=== PATIENT | female | born 1995 | race Caucasian/White ===

== ENCOUNTER 2023-07-12 12:10 | Emergency (ER) | payer OTHER, SELFPAY ==
--- NOTE | ~2023-07-12 | US_ITS ---
EXAMINATION: US OB <= 14 weeks fetus DATE: 07/12/2023 14:26 INDICATION: Vaginal bleeding TECHNIQUE: Real-time transabdominal and transvaginal obstetric ultrasound. FINDINGS: . No prior studies for comparison. The uterus measures 8.7 x 5.5 x 6.5 cm. There is an intrauterine gestational sac, with pole rebeca ntified. The crown rump length measures 0.5 cm, which correlates with a estimated gestational age of 6 weeks 1 day. heart tones are identified measuring 123 BPM. There is a subchorionic hemorrh age measuring 9 x 9 x 1.5 cm. Right ovary contains a 1.8 cm cyst. Normal Doppler signal in both ovari es. IMPRESSION: 1. SL IUP with an EGA of 6 weeks, 1 days (EDC by current ultrasound of 03/05/2024). 2: Small subchorionic hemorrhage. Reviewed, dictated and finalized at location B. IMPRESSION: 1. SL IUP with an EGA of 6 weeks, 1 days (EDC by current ultrasound of ). 2: Small subchorionic hemorrhage.
[2023-07-12 12:21] VITALS: BP 142/95; PULSE 117; RESP 17; TEMP 36.2; O2SAT 100
[2023-07-12 14:36] LABS: Basophils Percent Auto 0.5 % (0.2-1.2); Eosinophils Absolute Auto 0.2 K/mm3 (0-0.3); Eosinophils Percent Auto 2.9 % (0-4.4); Hematocrit 35.1 % (37.0-47.0); Hemoglobin 11.4 g/dL (12.0-15.0); Immature Granulocyte Absolute 0.03 K/mm3 (0.00-0.031); Immature Granulocyte Percent A 0.4 % (0-0.5); Lymphocytes Absolute Auto 1.73 K/mm3 (0.9-3.2); Lymphocytes Percent Auto 21.8 % (18.3-44.2); Mean Corpuscular HGB Conc 32.5 g/dl (32-36); Mean Corpuscular Hemoglobin 27.6 pg (26-34); Monocytes Absolute Auto 0.6 K/mm3 (0.1-0.6); Monocytes Percent Auto 7.2 % (2.6-8.5); Neutrophils Absolute Auto 5.3 K/mm3 (1.3-6.7); Neutrophils Percent Auto 67.2 % (45.5-73.1); Platelet Count Result 276 k/mm3 (150-375); Red Blood Count 4.13 M/mm3 (4.2-5.4); Red Cell Distribution Width 13.4 % (11.5-14.5); White Blood Count 7.9 K/mm3 (4.5-10.0)
--- NOTE | 2023-07-12 15:29 | ED.PREGNANCY ---
HPI - General Chief complaint: OB/Uterine Contractions Stated complaint: Vag bleed Time Seen by Provider: 07/12/23 14:18 Source: patient Mode of arrival: ambulatory Limitations: no limitations History of Present Illness HPI Narrative: Patient is a 28-year-old female who presents to the ED with report of vaginal bleeding. Patient is G4, P3 and currently approximately 6 weeks gestation. She reports she noticed a few clots of vaginal bleeding this morning with bright red blood with wiping as well. She has not had any bleeding previously with this . She is going to be seeing an OBGYN with [facility] in 2 weeks. She has not had an ultrasound yet for this . She does report having some cramping on her right lower abdomen and right low back over the last few days. Endorses some nausea throughout thus far, denies vomiting. Denies fever. Denies urinary complaints. Related Data Allergies Allergy/AdvReac Type Severity Reaction Status Date / Time ciprofloxacin [From Cipro] Allergy Unknown Verified 07/12/23 12:28 Review of Systems Review of Systems: CONSTITUTIONAL: Denies fever, chills, or sweats. CARDIOVASCULAR: Denies chest pain. RESPIRATORY: Denies dyspnea. GASTROINTESTINAL: See HPI. GENITOURINARY: See HPI. SKIN: Denies rash or itching. MUSCULOSKELETAL: Denies back pain, joint pain, or myalgia. NEUROLOGIC: Denies headache, numbness, or weakness. All systems reviewed & are unremarkable except as noted in HPI and below Exam Narrative: GENERAL: Well appearing, obese with BMI of 37.7, non-toxic, in no acute distress. HEAD: Normocephalic, atraumatic. NECK: Supple. No adenopathy, no masses. RESPIRATORY: Airway patent, respirations nonlabored. Clear to auscultation bilaterally, no rales, rhonchi, wheezing. CARDIOVASCULAR: Regular rate and rhythm without murmurs, rubs, or gallops. Radial pulses 2+ and equal bilaterally. ABDOMINAL: Soft, very mild tenderness in suprapubic region and right lower abdomen, nondistended, no hepatosplenomegaly. Normoactive BS. MUSCULOSKELETAL: Moves all extremities. Strength/ROM intact without gross deformities. SKIN: Warm, dry, normal color. No rashes. NEURO: A&O X3. Speech clear. Cranial nerves II-XII grossly intact. Steady gait. No ataxic movements. PSYCHIATRIC: Appropriate mood and affect. Normal interaction. Course Vital Signs Vital signs: Vital Signs Temperature 97.2 F L 07/12/23 12:21 Pulse Rate 117 H 07/12/23 12:21 Respiratory Rate 17 07/12/23 12:21 Blood Pressure 142/95 H 07/12/23 12:21 Pulse Oximetry 100 07/12/23 12:21 Oxygen Delivery Room Air 07/12/23 12:21 Temperature 99.3 F 07/12/23 16:16 Pulse Rate 87 07/12/23 16:16 Respiratory Rate 18 07/12/23 16:16 Blood Pressure 130/89 07/12/23 16:16 Pulse Oximetry 100 07/12/23 16:16 Oxygen Delivery Room Air 07/12/23 12:21 MDM - OB/Uterine Contractions MDM Narrative Medical decision making narrative: Patient , currently approximately 6 weeks gestation reporting vaginal bleeding this morning. Patient initially tachycardic upon arrival, resolved by the time of my evaluation. Mild tenderness in right lower abdomen on exam. CBC without leukocytosis. Minimal anemia at 11.4. No records to compare to. Beta quant ~40,500. Patient's blood type O+, no indication for RhoGAM. UA with some blood, no significant evidence for infection. ultrasound obtained and reassuring, showing live IUP, appropriate structures seen, 6 weeks 1 day, good heart tones. Does show subchorionic hematoma, likely source of patient's bleeding. Discussed lab and imaging findings with patient and provided reassurance. Patient reports she has had subchorionic hematomas with her pregnancies in the past. Offered to perform pelvic exam however patient declined at this time given the likelihood of bleeding from the hematoma. Patient has follow-up with [facility] within the next 2
[2023-07-12 15:48] LABS: Appearance Urine Clear (Clear); Bacteria Urine None Seen /hpf; Bilirubin Urine Negative (Negative); Blood Urine 2+ (Negative); Color Urine Yellow (Yellow); Glucose Urine UA Negative (Negative); Ketones Urine 2+ mg/dL (Negative); Leukocyte Esterase Ur Trace LEU/UL (Negative); Nitrate Urine Negative (Negative); Non Pathogenic Casts 0-2; Protein Urine 1+ mg/dL (Negative); Specific Grav Ur 1.016 (1.001-1.035); Squamous Epithelial Cell Urine Occasional /hpf (Few); Urobilinogen Urine 0.2 mg/dL (<2.0); WBC Urine 0-5 /hpf; pH Urine 6.5 (5.0-9.0)
[2023-07-12 15:55] LABS: Add Urine Microscopic? YES
[2023-07-12 16:16] VITALS: BP 130/89; PULSE 87; RESP 18; TEMP 37.4; O2SAT 100
== END 2023-07-12 16:22 | disposition home or self-care (01) ==
PROVIDERS: Emergency Medicine; Emergency Provider Physician Assistant; PCP Nurse Practitioner Family
DX: O41.8X10 Other specified disorders of amniotic fluid and membranes, first trimester, not applicable or unspecified (principal); O46.8X1 Other antepartum hemorrhage, first trimester; Z3A.01 Less than 8 weeks gestation of pregnancy
CPT/HCPCS: 36415; 76801; 81001; 84702; 85025; 85461; 86850; 86900; 86901; 99284